=== PATIENT | female | born 1965 | race Caucasian/White ===

== ENCOUNTER 2017-04-05 11:19 | Emergency (ER) | payer MEDICAID ==
[2017-04-05 11:30] VITALS: RESP 16; TEMP 98.4
--- NOTE | 2017-04-05 11:53 | EDPHY ---
H & P Stated Complaint: passed out last night falling back; pain post head, neck, upper back HPI/ROS: CHIEF COMPLAINT: Syncope History by patient HISTORY OF PRESENT ILLNESS: 51-year-old woman with a history of multiple sclerosis and a remote history of seizures presents complaining neck and back pain after syncopal episode last night. Patient states she got up in the middle the night and she was not feeling well, as if she might be sick, and she was brushing her teeth and next thing she knew she was on the floor though her toothbrush was put away. She does not know how long she was out for. There was no loss of bowel or bladder control. She did not bite her tongue. She was able to get herself back to bed. There was no associated chest pain or palpitations or shortness of breath. She had no preceding symptoms that she was going to faint. In the past when she has had seizures the last 1 was several years ago she always knew that it was coming and had a smell a bananas but she did not have that last night. She has been taking her medications as usual. She had a knee replacement in September but has only been taking Tylenol and ibuprofen for pain for the past few months. She says her neck hurts at the base of her head as well as on both sides and down into the middle of her back. There is no associated numbness tingling or weakness. It hurts somewhat to move around. She has not taken anything for it. Cardiac risk factors are notable for her age, history of hypertension and family history with a father who of a heart attack at age 56. She has never smoked and has no diabetes or high cholesterol. REVIEW OF SYSTEMS: As in HPI, and all other systems reviewed and are negative - Personal History LMP (Females 10-55): Post Menopausal Current Tetanus/Diphtheria Vaccine: Yes - Medical/Surgical History Other PMH: seizures. MS. HTN. knee replacement, surgeries. foot surgery. excision of benign brain tumor - Social History Smoking Status: Never smoked - Physical Exam Exam: General Appearance: Alert, nontoxic-appearing. Head: Normocephalic, atraumatic Eyes: Pupils equal and round no pallor or injection. Extraocular movements intact ENT, Mouth: Mucous membranes moist. Neck: No bony tenderness, full range of motion, positive right greater than left paraspinal muscle tenderness Respiratory: Normal, effort, There are no retractions, lungs are clear to auscultation. Cardiovascular: Regular rate and rhythm. Gastrointestinal: Abdomen is soft and nontender, no masses, bowel sounds normal. Neurological: Awake, alert and oriented x 3, no pronator drift, normal gait, DTRs 2+ equal bilaterally Skin: Warm and dry, no rashes. Musculoskeletal: Neck is supple nontender. Extremities are symmetrical, full range of motion. Psychiatric: Patient has normal affect, there is no agitation. Constitutional: Initial Vital Signs Temperature (C) 36.9 C 04/05/17 11:24 Heart Rate 75 04/05/17 11:24 Respiratory Rate 16 04/05/17 11:24 Blood Pressure 168/97 H 04/05/17 11:24 O2 Sat (%) 96 04/05/17 11:24 O2 Delivery Mode Room Air Allergies/Adverse Reactions: Sulfa (Sulfonamide Antibiotics) [Sulfa(Sulfonamide Antibiotics)] Allergy ( Intermediate, Verified 04/05/17 11:30) Swelling/neck,face,throat lisinopril Allergy (Verified 04/05/17 11:31) Home Medications: Medication Instructions Recorded Amlodipine Besylate 04/05/17 Aricept 04/05/17 Gilenya 04/05/17 Nuvigil 04/05/17 Medical Decision Making ED Course/Re-evaluation: 51-year-old woman with a history of multiple sclerosis and remote history of seizures presents after episode of syncope versus seizure last night. There is no evidence of neurological impairment or indication for imaging. Labs were unremarkable except for low white blood cell count which the patient says they have been monitoring for her MS medication. ECG showed normal sinus rhythm with no evidence of WPW, Brugada syndrome or other abnormality the patient remained in normal sinus rhythm on the monitor throughout her emergency department stay.. Because of the patient's loss of consciousness os that is unclear whether this was a seizure versus syncopal event. Patient is now neurologically intact and there is no evidence of significant traumatic injury. Is possible the patient has some autonomic dysfunction due to her MS. I am recommending close follow- up with both her neurologist and her primary care physician and further workup if she has recurrent event. Patient understands and is agreeable to this plan. We discussed conservative measures for managing her neck pain including ibuprofen and Tylenol. She declined muscle relaxant prescription. - Data Points Laboratory Results: Laboratory Results 04/05/17 12:05 04/05/17 12:05 04/05/17 04/05/17 12:05 12:05 WBC 3.41 10^3/uL L 10^3/uL (3.80-9.50) RBC 4.34 10^6/uL 10^6/uL (4.18-5.33) Hgb 14.3 g/dL g/dL (12.6-16.3) Hct 41.2 % % (38.0-47.0) MCV 94.9 fL fL (81.5-99.8) MCH 32.9 pg pg (27.9-34.1) MCHC 34.7 g/dL g/dL (32.4-36.7) RDW 12.0 % % (11.5-15.2) Plt Count 254 10^3/uL 10^3/uL (150-400) MPV 9.6 fL fL (8.7-11.7) Neut % (Auto) 71.0 % % (39.3-74.2) Lymph % (Auto) 6.2 % L % (15.0-45.0) [place] % (Auto) 15.2 % H % (4.5-13.0) Eos % (Auto) 7.0 % % (0.6-7.6) Baso % (Auto) 0.3 % % (0.3-1.7) Nucleat RBC Rel Count 0.0 % % (0.0-0.2) Absolute Neuts (auto) 2.42 10^3/uL 10^3/uL (1.70-6.50) Absolute Lymphs (auto) 0.21 10^3/uL L 10^3/uL (1.00-3.00) Absolute Monos (auto) 0.52 10^3/uL 10^3/uL (0.30-0.80) Absolute Eos (auto) 0.24 10^3/uL 10^3/uL (0.03-0.40) Absolute Basos (auto) 0.01 10^3/uL L 10^3/uL (0.02-0.10) Absolute Nucleated RBC 0.00 10^3/uL 10^3/uL (0-0.01) Immature Gran % 0.3 % % (0.0-1.1) Immature Gran # 0.01 10^3/uL 10^3/uL (0.00-0.10) Sodium 140 mEq/L mEq/L (134-144) Potassium 4.0 mEq/L mEq/L (3.5-5.2) Chloride 105 mEq/L mEq/L (97-110) Carbon Dioxide 23 mEq/l mEq/l (22-31) Anion Gap 12 mEq/L mEq/L (8-16) BUN 11 mg/dL mg/dL (7-23) Creatinine 0.5 mg/dL L mg/dL (0.6-1.0) Estimated GFR > 60 Glucose 89 mg/dL mg/dL (70-100) Calcium 8.8 mg/dL mg/dL (8.5-10.4) Troponin I < 0.012 ng/mL ng/mL (0-0.034) Departure - Departure Disposition: Home, Routine, Self-Care Clinical Impression: Syncope Qualifiers: Syncope type: unspecified Qualified Code(s): R55 - Syncope and collapse Cervical strain, acute Qualifiers: Encounter type: initial encounter Qualified Code(s): S16.1XXA - Strain of muscle, fascia and tendon at neck level, initial encounter Condition: Good Instructions: Cervical Strain (ED), Syncope (ED) Additional Instructions: You were seen by Dr. Josefina Lawson today. The cause of your event last night is unclear. Please follow up with both your primary care physician and your neurologist as soon as possible. Take Tylenol and/or ibuprofen for your neck pain. Try also massage. Return for any worsening or new concerns. Referrals: Pearl Jones MD [Primary Care Provider] - As per Instructions
--- NOTE | 2017-04-05 11:57 | CPEKG ---
Heart Rate: 65 RR Interval: 923 P-R Interval: 172 QRSD Interval: 108 QT Interval: 432 QTC Interval: 450 P [place]: 46 QRS [place]: 46 T Wave [place]: 45 EKG Severity - NORMAL ECG - EKG Impression: SINUS RHYTHM Electronically Signed By: Josefina Lawson 06-Apr-2017 22:39:21
[2017-04-05 12:12] LABS: % IMMATURE GRANULYOCYTES 0.3 % (0.0-1.1); ABSOLUTE IMMATURE GRANULOCYTES 0.01 10^3/uL (0.00-0.10); ADD DIFF? NO; ADD MORPH? NO; ADD SCAN? NO; ATYPICAL LYMPHOCYTE FLAG 0 (0-99); FRAGMENT RBC FLAG 0 (0-99); HEMATOCRIT 41.2 % (38.0-47.0); HEMOGLOBIN 14.3 g/dL (12.6-16.3); LEFT SHIFT FLG 0 (0-99); LIPEMIA HEMOLYSIS FLAG 90 (0-99); MEAN CELL HEMOGLOBIN 32.9 pg (27.9-34.1); MEAN CELL HEMOGLOBIN CONCENTR. 34.7 g/dL (32.4-36.7); MEAN CELL VOLUME 94.9 fL (81.5-99.8); MEAN PLATELET VOLUME 9.6 fL (8.7-11.7); PLATELET CLUMPS FLAG 0 (0-99); PLATELET COUNT 254 10^3/uL (150-400); RED BLOOD CELL COUNT 4.34 10^6/uL (4.18-5.33)
[2017-04-05 12:24] LABS: ANION GAP 12 mEq/L (8-16); CALCIUM 8.8 mg/dL (8.5-10.4); CARBON DIOXIDE 23 mEq/l (22-31); CHLORIDE 105 mEq/L (97-110); CREATININE 0.5 mg/dL (0.6-1.0); GLOMERULAR FILTRATION RATE > 60; GLUCOSE 89 mg/dL (70-100); SODIUM 140 mEq/L (134-144)
[2017-04-05 12:37] LABS: TROPONIN I < 0.012 ng/mL (0-0.034)
[2017-04-05 13:26] VITALS: BP 137/90; PULSE 70; O2SAT 97
== END 2017-04-05 13:23 | disposition home or self-care (01) ==
LOC: CED 11:19
DX: S16.1XXA Strain of muscle, fascia and tendon at neck level, initial encounter (principal); R55 Syncope and collapse; I10 Essential (primary) hypertension; W01.198A Fall on same level from slipping, tripping and stumbling with subsequent striking against other object, initial encounter
CPT/HCPCS: 80048-PO; 84484-PO; 85025-PO

== ENCOUNTER → 2017-12-21 | Outpatient (CLI) | payer OTHER | LOC: CIMAGING 12:59 → EDSTATUS 13:00 → CIMAGING 13:01 | PROVIDERS: ATTEND Family Medicine | DX: R05 Cough (principal) | CPT/HCPCS: 71046-PO ==

== ENCOUNTER → 2018-05-07 | Outpatient (CLI) | payer OTHER | LOC: CIMAGING 13:28 | PROVIDERS: ATTEND Family Medicine | DX: R92.8 Other abnormal and inconclusive findings on diagnostic imaging of breast (principal) ==

== ENCOUNTER → 2018-07-09 | Outpatient (CLI) | payer OTHER | LOC: CIMAGING 12:43 | PROVIDERS: ATTEND Family Medicine | DX: M25.571 Pain in right ankle and joints of right foot (principal); M79.89 Other specified soft tissue disorders | CPT/HCPCS: 73610-PO; 73630-PO ==

== ENCOUNTER → 2018-10-01 | Outpatient (CLI) | payer OTHER | LOC: CIMAGING 11:07 | PROVIDERS: ATTEND Family Medicine | DX: R50.9 Fever, unspecified (principal); R05 Cough | CPT/HCPCS: 71046-PO ==